=== PATIENT | female | born 1990 | race Two or more races ===

== ENCOUNTER 2023-01-12 10:19 | Emergency (ER) | payer OTHER ==
[~2023-01-12] VITALS: Ht 172.7 cm; Wt 85.0 kg
[2023-01-12] MEDS ORDERED: cloNIDine HCL 0.1 MG TAB PO ONE ×2 (11:00→13:45)
[2023-01-12] MEDS ORDERED: KETOROLAC TROMETH 60MG/2ML VIAL IM ONE (11:15)
[2023-01-12 11:21] LABS: Urine WBC None Seen /hpf (0 - 5)
[2023-01-12 12:00] LABS: Urine Bacteria NONE SEEN /hpf (None Seen); Urine Blood Negative /uL (Negative); Urine Clarity Clear (Clear); Urine Color Colorless (Yellow); Urine Protein, UAD Negative (Negative); Urine Specific Gravity 1.008 (1.001-1.035); Urine Urobilinogen Normal (Negative); Urine pH 6.5 (5.0-8.0)
[2023-01-12] MEDS ORDERED: LOSA100T25 PO (13:01)
[2023-01-12] MEDS ORDERED: TRAM50TA2 PO (13:02)
[2023-01-12 13:32] VITALS: PULSE 81; RESP 18; O2SAT 100
[2023-01-12 14:00] VITALS: BP 183/120; PULSE 83; RESP 18; TEMP 98.2; O2SAT 99
== END 2023-01-12 14:09 | disposition home or self-care (01) ==
LOC: ER 10:19
DX: M54.6 Pain in thoracic spine (principal); I16.0 Hypertensive urgency; F17.210 Nicotine dependence, cigarettes, uncomplicated; F15.90 Other stimulant use, unspecified, uncomplicated; Z79.899 Other long term (current) drug therapy
CPT/HCPCS: 72131; 81001; 81025; 96372; 99285; J1885